=== PATIENT | female | born 1990 | race Caucasian/White ===

== ENCOUNTER 2019-09-10 10:17 | Outpatient (CLI) | payer OTHER | END 2019-09-10 10:19 | disposition home or self-care (01) | LOC: RX STUDY 10:17 | PROVIDERS: ATTEND Obstetrics & Gynecology Reproductive Endocrinology | DX: N99.0 Postprocedural (acute) (chronic) kidney failure (principal) ==

== ENCOUNTER 2021-07-07 13:22 | Outpatient (CLI) | payer OTHER | END 2021-07-07 15:58 | disposition home or self-care (01) | LOC: NST 13:22 | PROVIDERS: ATTEND Obstetrics & Gynecology | DX: Z34.83 Encounter for supervision of other normal pregnancy, third trimester (principal) ==

== ENCOUNTER 2021-07-13 05:43 | Inpatient (IN) | payer OTHER ==
[~2021-07-13] VITALS: Ht 172.7 cm; Wt 0.5 kg
[2021-07-13] MEDS ORDERED: PRENATAL CAPLE1 EAC1 (06:38)
[2021-07-13] MEDS ORDERED: TUMS200 MG (06:39)
== END 2021-07-15 13:33 | disposition home or self-care (01) | DRG 807 ==
LOC: OB/GYN 05:43 → LDR 05:43 → OB/GYN 15:10
PROVIDERS: ADMIT Obstetrics & Gynecology Maternal & Fetal Medicine; ATTEND Obstetrics & Gynecology Maternal & Fetal Medicine
PROC: 10E0XZZ Delivery of Products of Conception, External Approach (ICD-10-PCS; principal; 2021-07-13)
PROC: 0HQ9XZZ Repair Perineum Skin, External Approach (ICD-10-PCS; 2021-07-13)
PROC: 4A1HXCZ Monitoring of Products of Conception, Cardiac Rate, External Approach (ICD-10-PCS; 2021-07-13)
DX: O70.0 First degree perineal laceration during delivery (principal); Z37.0 Single live birth; Z3A.39 39 weeks gestation of pregnancy; Z20.822 Contact with and (suspected) exposure to COVID-19

== ENCOUNTER 2024-03-02 17:00 | Emergency (ER) | payer OTHER ==
[~2024-03-02] VITALS: Ht 170.2 cm; Wt 59.0 kg
[~2024-03-02 17:00] MED LIST: PRENATAL CAPLE1 EAC1; TUMS200 MG
[2024-03-02] MEDS ORDERED: LEXAPRO5 MG (18:35)
[2024-03-02] MEDS ORDERED: 0.9 % SODIUM CHLORIDE 1,000 ML IV STA (18:49)
[2024-03-02] MEDS ORDERED: ONDANSETRON HCL 2 MG/ML VIAL IV STA (18:53)
[2024-03-02] MEDS ORDERED: FAMOTIDINE/PF 20 MG in 0.9 % SODIUM CHLORIDE 8 ML IV PUSH STA (18:53)
[2024-03-02 19:36] LABS: HEMATOCRIT 51.4 % (36.0-45.00); HEMOGLOBIN 17.4 g/dL (12.0-15.00); MEAN CELL VOLUME 89.3 fL (80.00-100.00); MEAN CORPUSCULAR HEMOGLOBIN 30.2 pg (27.00-32.0); MEAN CORPUSCULAR HGB CONC 33.8 g/dl (32.0-36.0); PLATELET COUNT 215 K/uL (150-450); RED BLOOD COUNT 5.76 M/uL (4.00-6.00); RED CELL DISTRIBUTION WIDTH 13.6 % (11.5-14.5)
[2024-03-02 19:57] LABS: CALCIUM 8.9 mg/dL (8.5-10.1); CREATININE SERUM 0.77 mg/dL (0.55-1.02); GFR 86.33; POTASSIUM 3.75 mEq/L (3.5-5.1)
[2024-03-02 20:02] LABS: PH,URINE 5.5 (5.0-8.0); URINE APPEARANCE Cloudy; URINE BILIRRUBIN Negative (NEGATIVE); URINE BLOOD Negative; URINE COLOR Dark Yellow; URINE GLUCOSE Negative (NEGATIVE); URINE LEUKOCYTE Moderate; URINE NITRATE Negative; URINE PROTEIN Trace (NEGATIVE)
[2024-03-02 20:06] LABS: URINE EPITHELIAL CELLS 50.8 uL (0.0-38.8); URINE RBC 13.2 uL (0.0-20.8); URINE WBC 578.6 uL (0.0-23.2)
[2024-03-02 20:17] LABS: URINE CAST 1.17 uL (0.0-1.40); URINE KETONE 80 (NEGATIVE)
[2024-03-02 20:19] LABS: URINE YEAST FEW /hpf
== END 2024-03-02 23:09 | disposition home or self-care (01) ==
LOC: ER 17:02
PROVIDERS: Emergency Medicine
DX: K52.89 Other specified noninfective gastroenteritis and colitis (principal); R19.7 Diarrhea, unspecified